=== PATIENT | female | born 1970 | race Caucasian/White ===

== ENCOUNTER → 2023-12-28 16:54 | Outpatient (REF) | payer BC, SELFPAY | LOC: RAD 16:54 | PROVIDERS: ATTENDING PHYSICIAN Internal Medicine | DX: R22.41 Localized swelling, mass and lump, right lower limb (principal) | CPT/HCPCS: 76882 ==

== ENCOUNTER → 2024-05-01 09:13 | Outpatient (REF) | payer BC, SELFPAY | LOC: HWRAD 09:13 | PROVIDERS: ATTENDING PHYSICIAN Internal Medicine | DX: R22.41 Localized swelling, mass and lump, right lower limb (principal) | CPT/HCPCS: 76882 ==

== ENCOUNTER → 2024-05-11 08:48 | Outpatient (REF) | payer BC, SELFPAY | LOC: HWWDC 08:48 | PROVIDERS: ATTENDING PHYSICIAN Obstetrics & Gynecology; FAMILY PHYSICIAN Internal Medicine | DX: Z12.31 Encounter for screening mammogram for malignant neoplasm of breast (principal) | CPT/HCPCS: 77063; 77067 ==

== ENCOUNTER → 2024-06-27 17:19 | Outpatient (REF) | payer BC, SELFPAY | LOC: RAD 17:19 | PROVIDERS: ATTENDING PHYSICIAN Internal Medicine | DX: S70.11XD Contusion of right thigh, subsequent encounter (principal) | CPT/HCPCS: 76882 ==

== ENCOUNTER → 2024-09-25 17:33 | Outpatient (REF) | payer BC, SELFPAY | LOC: MRI 3T 17:33 | PROVIDERS: ATTENDING PHYSICIAN Internal Medicine | DX: R22.41 Localized swelling, mass and lump, right lower limb (principal) | CPT/HCPCS: 73720 ==

== ENCOUNTER → 2025-05-14 08:24 | Outpatient (REF) | payer BC, SELFPAY | LOC: HWWDC 08:24 | PROVIDERS: ATTENDING PHYSICIAN Obstetrics & Gynecology; FAMILY PHYSICIAN Internal Medicine | DX: Z12.31 Encounter for screening mammogram for malignant neoplasm of breast (principal) | CPT/HCPCS: 77063; 77067 ==

== ENCOUNTER → 2025-07-26 17:02 | Outpatient (REF) | payer BC, SELFPAY | LOC: RAD 17:02 | PROVIDERS: ATTENDING PHYSICIAN Internal Medicine | DX: M25.561 Pain in right knee (principal); M25.562 Pain in left knee; M25.551 Pain in right hip; M25.552 Pain in left hip | CPT/HCPCS: 73523; 73564 ==